=== PATIENT | female | born 1960 | race Hispanic/Latino ===

== ENCOUNTER 2019-10-04 20:26 | Emergency (ER) | payer OTHER ==
[~2019-10-04] VITALS: Ht 170.2 cm; Wt 99.8 kg
[2019-10-04] MEDS ORDERED: TESSALON PERLE100 MG PO (20:44)
[2019-10-04] MEDS ORDERED: AZITHROMYCIN250 MG PO (20:44)
[2019-10-04] MEDS ORDERED: VENTOLIN HFA18 GM PO (20:44)
[2019-10-04] MEDS ORDERED: ZOFRAN4 MG PO (20:52)
[2019-10-04] MEDS ORDERED: NAPROSYN500 MG PO (21:02)
== END 2019-10-04 21:15 | disposition home or self-care (01) ==
LOC: FSED 20:26
DX: J10.1 Influenza due to other identified influenza virus with other respiratory manifestations (principal)
CPT/HCPCS: 99283

== ENCOUNTER → 2022-05-04 | Outpatient (CLI) | payer OTHER ==
[~2022-05-04] MED LIST: AZITHROMYCIN250 MG PO; NAPROSYN500 MG PO; TESSALON PERLE100 MG PO; VENTOLIN HFA18 GM PO; ZOFRAN4 MG PO
== END ==
LOC: MAMMO 10:08
PROVIDERS: ATTEND Internal Medicine
DX: Z12.31 Encounter for screening mammogram for malignant neoplasm of breast (principal); I11.9 Hypertensive heart disease without heart failure
CPT/HCPCS: 77067

== ENCOUNTER 2022-08-24 09:37 | Emergency (ER) | payer OTHER ==
[~2022-08-24] VITALS: Ht 170.2 cm; Wt 108.9 kg
[2022-08-24] MEDS ORDERED: DEXAMETHASONE SOD PHOS 10 MG/1 ML VIAL IM ONE (10:15)
[2022-08-24] MEDS ORDERED: DEXAMETHASONE SOD PHOS INJ 4 MG/ML SDV ONE (10:29)
[2022-08-24] MEDS ORDERED: TAMIFLU75 MG PO (10:42)
== END 2022-08-24 10:57 | disposition home or self-care (01) ==
LOC: FSED 09:40
DX: J10.1 Influenza due to other identified influenza virus with other respiratory manifestations (principal); H69.91 Unspecified Eustachian tube disorder, right ear; R05.9 Cough, unspecified; I10 Essential (primary) hypertension; E78.5 Hyperlipidemia, unspecified
CPT/HCPCS: 99283; J1100 ×2